=== PATIENT | female | born 1965 | race Caucasian/White ===

== ENCOUNTER 2019-06-12 09:58 | Inpatient (IN) | payer MEDICAID, OTHER ==
[~2019-06-12] VITALS: Ht 157.5 cm; Wt 51.1 kg
[2019-06-13 13:48] VITALS: BP 95/54
== END 2019-06-13 18:29 | disposition home or self-care (01) | DRG 54 ==
LOC: ED 12:36 → 3NW 12:37 → SUATTDRO 13:21 → ED 13:36
PROVIDERS: ADMIT Internal Medicine; ATTEND Internal Medicine
DX: C79.31 Secondary malignant neoplasm of brain (principal); G93.41 Metabolic encephalopathy; C79.51 Secondary malignant neoplasm of bone; R53.1 Weakness; E16.2 Hypoglycemia, unspecified; D63.8 Anemia in other chronic diseases classified elsewhere; F43.10 Post-traumatic stress disorder, unspecified; I10 Essential (primary) hypertension; M51.37 Other intervertebral disc degeneration, lumbosacral region; R25.2 Cramp and spasm; Z79.810 Long term (current) use of selective estrogen receptor modulators (SERMs); Z80.52 Family history of malignant neoplasm of bladder; Z85.3 Personal history of malignant neoplasm of breast; Z90.12 Acquired absence of left breast and nipple; Z79.899 Other long term (current) drug therapy
CPT/HCPCS: 36415; 70450; 70553; 72131; 72158; 77075; 80048; 80053; 85025; 96374; 96375; 99285; A9585; G0378; J1170; J1650; J1885; J3360; J2270